=== PATIENT | female | born 1975 | race Caucasian/White ===

== ENCOUNTER 2017-04-22 19:32 | Emergency (ER) | payer BC, OTHER ==
[2017-04-22 20:11] VITALS: BP 135/81; PULSE 94; TEMP 98.5; BMI 29.6
[2017-04-22] MEDS ORDERED: IBUPROFEN 400 MG TABLET (FP) PO ONE (20:12)
--- NOTE | 2017-04-22 20:12 | PDOC ---
Rapid Medical Evaluation Chief Complaint: Back Pain Time Seen by Provider: 04/22/17 20:07 Medical Evaluation: Allergies Allergy/AdvReac Type Severity Reaction Status Date / Time No Known Allergies Allergy Verified 03/16/16 14:05 04/22/17 20:07I have performed a brief in-person evaluation of this patient. The patient presents with a chief complaint of: low back pain x 2 weeks.Is spasmotic , Working in attic bending working on leak.. progressive worsening - no relief with aleve, old muscle relaxer. DEnies fevers, dysuria, Pertinent physical exam findings: pale, spasm pain to left low back. amb slowly I have ordered the following: UA, UCG ( + tubal ligation) The patient will proceed to the ED for further evaluation. Discharge Disposition - Referrals Referrals: Kelvin Main MD [Primary Care Provider] - - Patient Instructions - Post Discharge Activity
[2017-04-22 20:26] LABS: URINE APPEARANCE CLEAR; URINE BILIRUBIN NEGATIVE (NEGATIVE); URINE BLOOD NEGATIVE (NEGATIVE); URINE COLOR YELLOW; URINE GLUCOSE (UA) NEGATIVE (NEGATIVE); URINE KETONE TRACE (NEGATIVE); URINE LEUK ESTERASE NEGATIVE (NEGATIVE); URINE NITRITE NEGATIVE (NEGATIVE); URINE PROTEIN NEGATIVE (NEGATIVE)
[2017-04-22 20:30] LABS: HCG,QUALITATIVE URINE NEGATIVE
[2017-04-22] MEDS ORDERED: CYCLOBENZAPRINE HCL 10 MG TABLET (FP) ONE (20:58)
[2017-04-22] MEDS ORDERED: CYCLOBENZAPRINE HCL 5 MG TABLET PO SCH (21:00)
--- NOTE | 2017-04-22 21:04 | PDOC ---
History of Present Illness - General Chief Complaint: Back Pain Stated Complaint: LT SIDE BACK PAIN Time Seen by Provider: 04/22/17 20:07 History Source: Patient Exam Limitations: No Limitations - History of Present Illness Initial Comments: CHIEF COMPLAINT: 42 y/o female c/o worsening left sided low back pain for over 1 week. HISTORY OF PRESENT ILLNESS: The patient states the symptoms started after she was bending over in her attic for 30 minutes, unable to stand straight because of the pitch of the roof. She states the pain has worsened and is now traveling into her left posterior leg. She has been taking all different over the counter medications with little relief. SHe denies fall, back trauma, saddle anesthesia, numbness/tingling in LEs. Vital signs on arrival are notable for pulse of 94. REVIEW OF SYSTEMS: GENERAL/CONSTITUTIONAL: No fever/chills. No weakness. No weight change. HEAD, EYES, EARS, NOSE AND THROAT: No change in vision. No ear pain or discharge. No sore throat. CARDIOVASCULAR: No chest pain or shortness of breath. RESPIRATORY: No cough, wheezing, or hemoptysis. GASTROINTESTINAL: No abd pain, nausea, vomiting, diarrhea. GENITOURINARY: No dysuria, frequency, or change in urination. MUSCULOSKELETAL: +left low back pain. No joint or muscle swelling or pain. No neck pain. SKIN: No rash or easy bruising. NEUROLOGIC: No headache, vertigo, loss of consciousness, or loss of sensation. PHYSICAL EXAM: GENERAL: The patient is awake, alert, and fully oriented, in obvious discomfort with slow ambulation. BACK: No midline lumbar spine TTP or step offs. Pain with palpation of left lumbar paravertebral muscles from L4-S1. Pain with palpation of left gluteal muscles. EXTREMITIES: Normal range of motion, no edema. NEUROLOGICAL: Normal speech, normal gait. CN II-XII grossly intact. No saddle anesthesia. PSYCH: Normal mood, normal affect. SKIN: Warm, dry, normal turgor, no rashes or lesions noted. Past History - Past Medical History Allergies/Adverse Reactions: Allergies Allergy/AdvReac Type Severity Reaction Status Date / Time No Known Allergies Allergy Verified 04/22/17 20:08 Home Medications: Ambulatory Orders Naproxen [Naprosyn -] 500 mg PO BID #20 tablet 03/16/16 Cyclobenzaprine HCl [Flexeril 10 mg] 10 mg PO TID PRN #21 tablet 04/22/17 Ibuprofen 800 mg PO TID #20 tablet 04/22/17 - Surgical History Abdominal Surgery: (TUBAL LIGATION) - Suicide/Smoking/Psychosocial Hx Smoking History: Never smoked Hx Alcohol Use: No Drug/Substance Use Hx: No *Physical Exam - Vital Signs Last Vital Signs Temp Pulse Resp BP Pulse Ox 98.5 F 94 H 22 135/81 97 04/22/17 20:08 04/22/17 20:08 04/22/17 20:08 04/22/17 20:08 04/22/17 20:08 ED Treatment Course - ADDITIONAL ORDERS Additional order review: Laboratory Results 04/22/17 20:15 Urine Color Yellow Urine Appearance Clear Urine pH 5.0 Ur Specific [place] 1.024 Urine Protein Negative Urine Glucose (UA) Negative Urine Ketones Trace H Urine Blood Negative Urine Nitrite Negative Urine Bilirubin Negative Urine Urobilinogen 2.0 H Ur Leukocyte Esterase Negative Urine HCG, Qual Negative - Medications Given in the ED: ED Medications Discontinued Medications Generic Name Dose Route Start Last Admin Trade Name Tyler PRN Reason Stop Dose Admin Ibuprofen 400 mg 04/22/17 20:12 04/22/17 20:15 Motrin - PO 04/22/17 20:13 400 mg ONCE ONE Administration Medical Decision Making - Medical Decision Making A/P: 42 y/o female with left low back pain with sciatica. Will give PO ibuprofen and flexeril. Showed the patient a few stretching exercises to perform multiple times per day. Suggested massage. Will send rx for flexeril and ibuprofen and suggested she take them consistently until feeling better. Informed her the flexeril may cause drowsiness. Instructed her to return to the ER with any worsening or concerning symptoms. The patient verbalizes understanding of all instructions, has no further questions and is awaiting discharge. *DC/Admit/Observation/Transfer Diagnosis at time of Disposition: Low back pain Qualifiers: Chronicity: acute Back pain laterality: left Sciatica presence: with sciatica Sciatica laterality: sciatica of left side Qualified Code(s): M54.42 - Lumbago with sciatica, left side - Discharge Dispostion Disposition: HOME Condition at time of disposition: Stable - Referrals Referrals: Kelvin Main MD [Primary Care Provider] - - Patient Instructions Printed Discharge Instructions: DI for Low Back Pain, DI for Back Pain With Sciatica Additional Instructions: Discharge Instructions: -You have a back muscle spasm causing sciatic pain -2 prescriptions were called to your pharmacy; take as prescribed -Flexeril may cause drowsiness -Stretch your back and leg muscles multiple times per day -Apply massage and heating pad to affected area to help with pain -Return to the ER with any worsening or concerning symptoms - Post Discharge Activity
== END 2017-04-22 21:24 | disposition home or self-care (01) ==
LOC: JERFT 19:32
DX: M54.42 Lumbago with sciatica, left side (principal)
CPT/HCPCS: 81003; 84703; 99281-25

== ENCOUNTER 2017-12-15 17:10 | Emergency (ER) | payer BC, OTHER ==
[2017-12-15 17:29] VITALS: BP 155/95; PULSE 111; TEMP 99.1; BMI 28.1
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
[2017-12-15] MEDS ORDERED: IBUPROFEN 600 MG TABLET (FP) PO ONE (17:49)
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
[2017-12-15] MEDS ORDERED: KETOROLAC TROMETHAMINE 60 MG/2 ML VIAL IM ONE (17:54)
[2017-12-15 17:57] LABS: URINE APPEARANCE CLEAR; URINE BILIRUBIN NEGATIVE (<2.0 mg/dL); URINE COLOR STRAW; URINE GLUCOSE (UA) NEGATIVE (NEGATIVE); URINE KETONE NEGATIVE (NEGATIVE); URINE LEUK ESTERASE NEGATIVE (NEGATIVE); URINE NITRITE NEGATIVE (NEGATIVE); URINE PROTEIN NEGATIVE (NEGATIVE); URINE UROBILINOGEN NEGATIVE mg/dL (0.2-1.0)
[2017-12-15 17:59] LABS: HCG,QUALITATIVE URINE Negative
[2017-12-15] MEDS ORDERED: KETOROLAC TROMETHAMINE 60 MG/2 ML VIAL ONE (18:04)
== END 2017-12-15 19:22 | disposition home or self-care (01) ==
LOC: JERFT 17:10
PROC: 3E0233Z Introduction of Anti-inflammatory into Muscle, Percutaneous Approach (ICD-10-PCS; principal; 2017-12-15)
DX: S29.8XXA Other specified injuries of thorax, initial encounter (principal); S39.82XA Other specified injuries of lower back, initial encounter; W03.XXXA Other fall on same level due to collision with another person, initial encounter; Y93.89 Activity, other specified; Y92.211 Elementary school as the place of occurrence of the external cause; Y99.0 Civilian activity done for income or pay
CPT/HCPCS: 72070-TC-FY; 72100-TC-FY; 81003; 84703; 99281-25

== ENCOUNTER 2018-05-30 18:53 | Emergency (ER) | payer BC, OTHER ==
[2018-05-30 19:05] VITALS: BP 128/79; PULSE 92; TEMP 98.1; BMI 29.2
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
== END 2018-05-30 20:33 | disposition home or self-care (01) ==
LOC: JERFT 18:53
DX: S39.012A Strain of muscle, fascia and tendon of lower back, initial encounter (principal); S16.1XXA Strain of muscle, fascia and tendon at neck level, initial encounter; S80.02XA Contusion of left knee, initial encounter; S80.01XA Contusion of right knee, initial encounter; V43.52XA Car driver injured in collision with other type car in traffic accident, initial encounter; Y92.410 Unspecified street and highway as the place of occurrence of the external cause; Y93.89 Activity, other specified; Y99.8 Other external cause status
CPT/HCPCS: 99281-25